=== PATIENT | female | born 1965 | race Caucasian/White ===

== ENCOUNTER 2017-07-25 17:41 | Emergency (ER) | payer MEDICARE ==
[~2017-07-25] VITALS: Ht 162.6 cm; Wt 51.3 kg
[~2017-07-25 17:41] MED LIST: HYDR-971 PO; PRAM1TAB5 PO; TOLT2CAP PO
[2017-07-25 17:54] VITALS: BP 162/90
--- NOTE | 2017-07-25 18:14 | ED.ADGEN ---
Past History Past Medical History: Anemia, Other Past Surgical History: , Other Alcohol Use: None Drug Use: None Adult General Chief Complaint Chief Complaint " I got this really bad dental pain.. here in my two cracked teeth.. I put up with it the last two days.. and now I can't stand it any more..." HPI HPI Patient is a 52 year old female who presents with above hx and complaints of pain in , . Patient has multiple areas of dental decay. No obvious pointing abscesses. No trismus. No adenopathy at ankle of jaw. Patient denies any history of immunosuppression. Patient does have a history of anemia and frequent ice eating. Review of Systems Review of Systems Constitutional: Denies fever or chills [] Eyes: Denies change in visual acuity, redness, or eye pain [] HENT: Denies nasal congestion or sore throat []complains of severe dental pain tonight Respiratory: Denies cough or shortness of breath [] Cardiovascular: No additional information not addressed in HPI [] GI: Denies abdominal pain, nausea, vomiting, bloody stools or diarrhea [] : Denies dysuria or hematuria [] Musculoskeletal: Denies back pain or joint pain [] Integument: Denies rash or skin lesions [] Neurologic: Denies headache, focal weakness or sensory changes [] Endocrine: Denies polyuria or polydipsia [] Family History Family History Noncontributory- has recently lost her to Current Medications Current Medications Current Medications Medications (Trade) Dose Ordered Sig/Abdiaziz Start Time Stop Time Status Last Admin Dose Admin Cephalexin HCl (Keflex) 500 mg 1X ONCE 07/25/17 18:30 07/25/17 18:31 DC 07/25/17 18:29 500 MG Hydrocodone Bitartrate/ Ibuprofen (Vicoprofen 7.5-200) 1 tab 1X ONCE 07/25/17 18:30 07/25/17 18:31 DC 07/25/17 18:30 1 TAB See nursing for home medications Allergies Allergies Allergies Coded Allergies Type Severity Reaction Last Updated Verified Penicillins Allergy Intermediate Rash 02/22/15 Yes vitamin E Allergy Intermediate rash 02/22/15 Yes Physical Exam Physical Exam Constitutional: In acute distress, non-toxic appearance. [] HENT: Normocephalic, atraumatic, bilateral external ears normal, oropharynx moist, no oral exudates, nose normal. Multiple areas of dental decay, gingivitis , and fractures of teeth 27 and 28 as per history of present illness Eyes: PERRLA, EOMI, conjunctiva normal, no discharge. [] Neck: Normal range of motion, no tenderness, supple, no stridor. [] Cardiovascular:Heart rate regular rhythm, no murmur [] Lungs & Thorax: Bilateral breath sounds equal at apexes with scattered wheezes on auscultation [] Abdomen: Bowel sounds normal, soft, no tenderness, no masses, no pulsatile masses. [] Skin: Warm, dry, no erythema, no rash. [] Back: No tenderness, no CVA tenderness. [] Extremities: No tenderness, no cyanosis, no clubbing, ROM intact, no edema. [] Neurologic: Alert and oriented X 3, normal motor function, normal sensory function, no focal deficits noted. [] Psychologic: Affect anxious, judgement normal, mood normal. [] Current Patient Data Vital Signs Vital Signs Date Time Temp Pulse Resp B/P (MAP) Pulse Ox O2 Delivery O2 Flow Rate FiO2 07/25/17 17:54 97.8 77 20 99 Room Air EKG EKG [] Radiology/Procedures Radiology/Procedures [] Course & Med Decision Making Course & Med Decision Making Pertinent Labs and Imaging studies reviewed. (See chart for details) Rents mouth with Listerine 4 times a day. [place] teeth. Must follow-up with Dentist. . Keflex 500 mg 3 times a day x 7 days. May take Vicoprofen up to 4 times a day only for marked pain. Discussed treatment of anemia with her primary care. [] Final Impression Final Impression 1. Dental pain- 27, 28 2. Hx.Anemia and Ice eating[] Problems: Dragon Disclaimer Dragon Disclaimer This electronic medical record was generated, in whole or in part, using a voice recognition dictation system. DONNA PEACE MD Jul 25, 2017 18:14
[2017-07-25] MEDS ORDERED: CEPH-264 PO (18:16)
[2017-07-25] MEDS ORDERED: HYDR-79 PO (18:16)
[2017-07-25] MEDS ORDERED: HYDROcodon/IBUPROFEN 7.5/200MG 1 TAB TABLET PO ONE (18:30)
[2017-07-25] MEDS ORDERED: CEPHALEXIN 250 MG CAPSULE PO ONE (18:30)
== END 2017-07-25 18:30 | disposition home or self-care (01) ==
LOC: ER 17:41
DX: K02.9 Dental caries, unspecified (principal); Z86.2 Personal history of diseases of the blood and blood-forming organs and certain disorders involving the immune mechanism; Z88.0 Allergy status to penicillin; Z88.8 Allergy status to other drugs, medicaments and biological substances
CPT/HCPCS: 99283

== ENCOUNTER 2018-03-06 12:01 | Emergency (ER) | payer MEDICARE ==
[~2018-03-06] VITALS: Ht 162.6 cm; Wt 51.3 kg
[~2018-03-06 12:01] MED LIST changes: +CEPH-264 PO; +HYDR-79 PO
[2018-03-06 12:12] VITALS: BP 166/90
--- NOTE | 2018-03-06 12:31 | PHYS DOC ---
Past History Past Medical History: Anemia, Other Past Surgical History: , Other Alcohol Use: None Drug Use: None Adult General Chief Complaint Chief Complaint: ANKLE PROBLEM HPI HPI 52-year-old female presents to the right ankle pain. One week ago, the patient tripped going down the staircase to her mailbox outside. As she tumbled she knows that she twisted her right ankle is unsure which direction. She has been walking on it. She presents today because it continues to be swollen and tender to the touch along the medial malleolus. She denies any other injury. She denies fever or chills. He has not been wearing a brace or Pete wrap. Review of Systems Review of Systems Constitutional: Denies fever or chills [] Eyes: Denies change in visual acuity, redness, or eye pain [] HENT: Denies nasal congestion or sore throat [] Respiratory: Denies cough or shortness of breath [] Cardiovascular: No additional information not addressed in HPI [] GI: Denies abdominal pain, nausea, vomiting, bloody stools or diarrhea [] : Denies dysuria or hematuria [] Musculoskeletal: Right ankle pain [] Integument: Denies rash or skin lesions [] Neurologic: Denies headache, focal weakness or sensory changes [] Endocrine: Denies polyuria or polydipsia [] All other systems were reviewed and found to be within normal limits, except as documented in this note. Allergies Allergies Allergies Coded Allergies Type Severity Reaction Last Updated Verified Penicillins Allergy Intermediate Rash 02/22/15 Yes vitamin E Allergy Intermediate rash 02/22/15 Yes Physical Exam Physical Exam Constitutional: Well developed, well nourished, no acute distress, non-toxic appearance. [] HENT: Normocephalic, atraumatic, bilateral external ears normal, oropharynx moist, no oral exudates, nose normal. [] Eyes: PERRLA, EOMI, conjunctiva normal, no discharge. [] Neck: Normal range of motion, no tenderness, supple, no stridor. [] Cardiovascular:Heart rate regular rhythm, no murmur [] Lungs & Thorax: Bilateral breath sounds clear to auscultation [] Abdomen: Bowel sounds normal, soft, no tenderness, no masses, no pulsatile masses. [] Skin: Warm, dry, no erythema, no rash. [] Back: No tenderness, no CVA tenderness. [] Extremities: Right medial ankle tenderness, mild swelling of the ankle, no ecchymosis. [] Neurologic: Alert and oriented X 3, normal motor function, normal sensory function, no focal deficits noted. [] Psychologic: Affect normal, judgement normal, mood normal. [] Current Patient Data Vital Signs Vital Signs Date Time Temp Pulse Resp B/P (MAP) Pulse Ox O2 Delivery O2 Flow Rate FiO2 03/06/18 12:12 97.9 66 16 100 Room Air EKG EKG [] Radiology/Procedures Radiology/Procedures Three-view right ankle series Clinical indications: Right ankle pain for one week after a fall. FINDINGS: No acute fracture or dislocation or osteolytic process is seen. The mortise ankle joint is intact. IMPRESSION: No acute fracture. Electronically signed by: Jhonny Llanes MD (03/06/2018 12:30 PM) [facility][] Course & Med Decision Making Course & Med Decision Making Pertinent Labs and Imaging studies reviewed. (See chart for details) Patient's ankle is negative for fracture. This is likely an ankle sprain. I will place her in an air splint. [] Dragon Disclaimer Dragon Disclaimer This electronic medical record was generated, in whole or in part, using a voice recognition dictation system. Departure Departure: Referrals: KAILEY FITZGERALD (PCP) ANNA JOSE DO Mar 06, 2018 12:31
== END 2018-03-06 13:07 | disposition home or self-care (01) ==
LOC: ER 12:01
DX: M25.571 Pain in right ankle and joints of right foot (principal); R22.41 Localized swelling, mass and lump, right lower limb; Z86.2 Personal history of diseases of the blood and blood-forming organs and certain disorders involving the immune mechanism; Z88.0 Allergy status to penicillin; Z88.8 Allergy status to other drugs, medicaments and biological substances; X50.1XXA Overexertion from prolonged static or awkward postures, initial encounter; Y93.89 Activity, other specified; Y99.8 Other external cause status; Y92.89 Other specified places as the place of occurrence of the external cause
CPT/HCPCS: 29515; 73610; 99284

== ENCOUNTER 2018-07-31 15:25 | Emergency (ER) | payer MEDICARE ==
[~2018-07-31] VITALS: Ht 162.6 cm; Wt 47.6 kg
[2018-07-31] MEDS ORDERED: ALBU8.5H8 INH (16:13)
--- NOTE | 2018-07-31 16:16 | RAD ---
AP chest. HISTORY: Cough with fever history of smoking AP view was taken of the chest. Lungs are clear. Heart is normal in size without heart failure. There is no effusion. IMPRESSION: 1. No acute chest disease. Electronically signed by: Roberto Carlos Fuller MD (07/31/2018 4:13 PM) [facility]
--- NOTE | 2018-07-31 16:16 | PHYS DOC ---
Past History Past Medical History: Anemia, Other Past Surgical History: , Other Alcohol Use: Rarely Drug Use: None Adult General Chief Complaint Chief Complaint: SORE THROAT HPI HPI Patient is a 53-year-old female presenting with cough sore throat and mild body aches for the last 2 days family member had strep throat she wants to be checked for that. Chest pain only with coughing. She quit smoking 2 years ago otherwise she does not have any medical problems that she knows about. Review of Systems Review of Systems Constitutional: Denies fever or chills [] Eyes: Denies change in visual acuity, redness, or eye pain [] HENT: Nasal congestion noted Respiratory: D Integument: Denies rash or skin lesions [] Neurologic: Denies headache, focal weakness or sensory changes [] Endocrine: Denies polyuria or polydipsia [] All other systems were reviewed and found to be within normal limits, except as documented in this note. Allergies Allergies Allergies Coded Allergies Type Severity Reaction Last Updated Verified Penicillins Allergy Intermediate Rash 02/22/15 Yes vitamin E Allergy Intermediate rash 02/22/15 Yes Physical Exam Physical Exam Constitutional: Well developed, well nourished, no acute distress, non-toxic appearance. [] HENT: Normocephalic, atraumatic, bilateral external ears normal, oropharynx moist, no oral exudates, nose normal. []Mild erythema of the oropharynx no exudates Eyes: PERRLA, EOMI, conjunctiva normal, no discharge. [] Neck: Normal range of motion, no tenderness, supple, no stridor. [] Cardiovascular:Heart rate regular rhythm, no murmur [] Lungs & Thorax: Bilateral breath sounds clear to auscultation [] Abdomen: Bowel sounds normal, soft, no tenderness, no masses, no pulsatile masses. [] Skin: Warm, dry, no erythema, no rash. [] Back: No tenderness, no CVA tenderness. [] Extremities: No tenderness, no cyanosis, no clubbing, ROM intact, no edema. [] Neurologic: Alert and oriented X 3, normal motor function, normal sensory function, no focal deficits noted. [] Psychologic: Affect normal, judgement normal, mood normal. [] Current Patient Data Vital Signs Vital Signs Date Time Temp Pulse Resp B/P (MAP) Pulse Ox O2 Delivery O2 Flow Rate FiO2 07/31/18 15:33 97.6 98 20 100 Room Air Lab Results Laboratory Tests Test 07/31/18 15:45 Group A Streptococcus Rapid Negative (NEGATIVE) EKG EKG [] Radiology/Procedures Radiology/Procedures [] Impressions: Chest x-ray my read negative acute. Course & Med Decision Making Course & Med Decision Making Pertinent Labs and Imaging studies reviewed. (See chart for details) []Sore throat and sinus congestion cough lungs clear strep test negative chest x -ray clear vitals look good reassurance provided albuterol prescription given due to history of smoking possible improvement in cough from that. Return precautions discussed Dragtom Disclaimer Dragon Disclaimer This electronic medical record was generated, in whole or in part, using a voice recognition dictation system. Departure Departure: Impression: Primary Impression: Bronchitis Disposition: 01 HOME, SELF-CARE Condition: STABLE Patient Instructions: Bronchitis, Fomn-fh-[id number] Scripts Albuterol Sulfate (PROAIR HFA INHALER) 8.5 Gm Hfa.aer.ad 1 PUFF INH PRN Q6HRS PRN for SHORTNESS OF BREATH, #1 INHALER 0 Refills Prov: MINA JAFFE MD 07/31/18 MINA JAFFE MD Jul 31, 2018 16:16
[2018-07-31 16:23] VITALS: BP 131/68
== END 2018-07-31 16:23 | disposition home or self-care (01) ==
LOC: ER 15:25
DX: J40 Bronchitis, not specified as acute or chronic (principal); Z88.0 Allergy status to penicillin; Z88.8 Allergy status to other drugs, medicaments and biological substances; Z86.2 Personal history of diseases of the blood and blood-forming organs and certain disorders involving the immune mechanism
CPT/HCPCS: 71045; 87070; 87880; 99285

== ENCOUNTER 2018-12-16 18:43 | Emergency (ER) | payer MEDICARE ==
[~2018-12-16] VITALS: Ht 162.6 cm; Wt 49.9 kg
[~2018-12-16 18:43] MED LIST changes: +ALBU2.5V8 INH; +HYDR-1179 PO; +HYDR-3165 PO; -HYDR-79 PO; -HYDR-971 PO
--- NOTE | 2018-12-16 19:10 | PHYS DOC ---
Past History Past Medical History: Anemia, Hypertension, Other Past Surgical History: , Other Smoking: Non-smoker Alcohol Use: None Drug Use: None Adult General Chief Complaint Chief Complaint: LOWEREXTREMITY INJURY HPI HPI Patient is a 53-year-old female who presents to the emergency department for evaluation. She states that for the past 24 hours she has developed pedal edema in her lower extremities bilaterally. She denies any leg pain or calf pain, shortness of breath, orthopnea, pleuritic pain, dizziness or lightheadedness. She has not had any dyspnea on exertion. She states she has had edema in the past, about a year ago. She reports a history of anemia and history of hypertension, but has run out of her lisinopril and is not taking any other medication. She cites lack of insurance is a reason that she does not go to the doctor regularly. Other than her edema she has no other complaints. There are no alleviating or exacerbating factors to her symptoms otherwise. Review of Systems Review of Systems Constitutional: Denies fever or chills [] Eyes: Denies change in visual acuity, redness, or eye pain [] HENT: Denies nasal congestion or sore throat [] Respiratory: Denies cough or shortness of breath [] Cardiovascular: The patient denies any shortness of breath, chest pain, palpitations, or orthopnea [] GI: Denies abdominal pain, nausea, vomiting, bloody stools or diarrhea [] : Denies dysuria or hematuria [] Musculoskeletal: Denies back pain or joint pain [] Integument: Denies rash or skin lesions [] Neurologic: Denies headache, focal weakness or sensory changes [] Endocrine: Denies polyuria or polydipsia [] All other systems were reviewed and found to be within normal limits, except as documented in this note. Allergies Allergies Allergies Coded Allergies Type Severity Reaction Last Updated Verified Penicillins Allergy Intermediate Rash 02/22/15 Yes vitamin E Allergy Intermediate rash 02/22/15 Yes Physical Exam Physical Exam PHYSICAL EXAM: CONSTITUTIONAL: Well developed, well nourished HEAD: normocephalic, atraumatic EENT: PERRL, EOMI. Conjunctivae normal color, sclerae non-icteric; moist mucous membranes. NECK: Supple, non-tender; no meningismus. LUNGS: Lungs CTA, breathing even and unlabored. Normal air movement. HEART: Regular rate and rhythm, no murmur CHEST: No deformity; non-tender ABDOMEN: The abdomen is soft, and non-tender, no masses or bruits. EXTREM: Normal ROM; no deformity, no calf tenderness. Normal pulses palpable in all extremities. There is 1+ bilateral minimally pitting pedal edema. SKIN: No rash; no diaphoresis NEURO: Alert; normal speech and cognition; CN's grossly intact; strength grossly intact without focal deficit. BACK: No CVA TTP. Current Patient Data Vital Signs Vital Signs Date Time Temp Pulse Resp B/P (MAP) Pulse Ox O2 Delivery O2 Flow Rate FiO2 12/16/18 18:45 98.0 90 20 99 Room Air Lab Results Laboratory Tests Test 12/16/18 19:15 White Blood Count 11.8 x10^3/uL Red Blood Count 3.81 x10^6/uL Hemoglobin 8.2 g/dL Hematocrit 26.9 % Mean Corpuscular Volume 71 fL Mean Corpuscular Hemoglobin 22 pg Mean Corpuscular Hemoglobin Concent 31 g/dL Red Cell Distribution Width 19.4 % Platelet Count 650 x10^3/uL Neutrophils (%) (Auto) 81 % Lymphocytes (%) (Auto) 11 % Monocytes (%) (Auto) 7 % Eosinophils (%) (Auto) 1 % Basophils (%) (Auto) 1 % Neutrophils # (Auto) 9.5 x10^3uL Lymphocytes # (Auto) 1.2 x10^3/uL Monocytes # (Auto) 0.8 x10^3/uL Eosinophils # (Auto) 0.1 x10^3/uL Basophils # (Auto) 0.1 x10^3/uL Platelet Estimate Pending Sodium Level 143 mmol/L Potassium Level 3.1 mmol/L Chloride Level 108 mmol/L Carbon Dioxide Level 28 mmol/L Anion Gap 7 Blood Urea Nitrogen 19 mg/dL Creatinine 0.7 mg/dL Estimated GFR (Cockcroft-Gault) 86.9 BUN/Creatinine Ratio 27 Glucose Level 117 mg/dL Calcium Level 8.4 mg/dL Total Bilirubin 0.1 mg/dL Aspartate Amino Transf (AST/SGOT) 47 U/L Alanine Aminotransferase (ALT/SGPT) 40 U/L Alkaline Phosphatase 170 U/L Troponin I Quantitative < 0.017 ng/mL ZM-Ojy-W-Type Natriuretic Peptide 196 pg/mL Total Protein 6.2 g/dL Albumin 3.2 g/dL Albumin/Globulin Ratio 1.1 EKG EKG Normal sinus rhythm with a normal rate, normal axis, normal intervals, there are no acute ischemic ST/T changes.[] Radiology/Procedures Radiology/Procedures ER physician preliminary chest x-ray interpretation: No acute disease.[] Course & Med Decision Making Course & Med Decision Making Pertinent Labs and Imaging studies reviewed. (See chart for details) []The patient's condition remained stable. Her anemia is similar to a prior value, I discussed the test results, the need for close outpatient follow-up with her PCP, and return precautions. The patient will be given numbers of local PCPs with which to establish care. The importance of close outpatient follow-up was stressed. Dragon Disclaimer Dragon Disclaimer This electronic medical record was generated, in whole or in part, using a voice recognition dictation system. Departure Departure: Impression: Primary Impression: Pedal edema Additional Impression: Hypertension Disposition: HOME, SELF-CARE Condition: STABLE Referrals: KAILEY FITZGERALD (PCP) Patient Instructions: Hypertension, Peripheral Edema Scripts Lisinopril/Hydrochlorothiazide (LISINOPRIL-HCTZ 20-25 MG TAB) 1 Each Tablet 1 TAB PO DAILY for N/A, #30 TAB 0 Refills Prov: DENA HOANG MD 12/16/18 Potassium Chloride (KLOR-CON 10) 10 Meq Tablet.er 2 TAB PO DAILY for N/A, #60 TAB 0 Refills Prov: DENA HOANG MD 12/16/18 Problem Qualifiers DENA HOANG MD Dec 16, 2018 19:10
[2018-12-16 19:27] LABS: BASO # 0.1 x10^3/uL (0.0-0.2); BASO % 1 % (0-3); EOS # 0.1 x10^3/uL (0.0-0.7); EOS % 1 % (0-3); HEMATOCRIT 26.9 % (36.0-47.0); HEMOGLOBIN 8.2 g/dL (12.0-15.5); LYMPH # 1.2 x10^3/uL (1.0-4.8); LYMPH % 11 % (24-48); MEAN CORPUSCULAR HEMOGLOBIN 22 pg (25-35); MEAN CORPUSCULAR HGB CONC 31 g/dL (31-37); MEAN CORPUSCULAR VOLUME 71 fL (79-100); MONO # 0.8 x10^3/uL (0.0-1.1); MONO % 7 % (0-9); NEUT # 9.5 x10^3uL (1.8-7.7); NEUT % 81 % (31-73); PLATELET COUNT 650 x10^3/uL (140-400); RED BLOOD COUNT 3.81 x10^6/uL (3.50-5.40); RED CELL DISTRIBUTION WIDTH 19.4 % (11.5-14.5); WHITE BLOOD COUNT 11.8 x10^3/uL (4.0-11.0)
[2018-12-16 19:48] LABS: ALBUMIN 3.2 g/dL (3.4-5.0); ALBUMIN/GLOBULIN RATIO 1.1 (1.0-1.7); CALCIUM 8.4 mg/dL (8.5-10.1); CREATININE 0.7 mg/dL (0.6-1.0); GFR 86.9; POTASSIUM 3.1 mmol/L (3.5-5.1); TOTAL BILIRUBIN 0.1 mg/dL (0.2-1.0); TOTAL PROTEIN 6.2 g/dL (6.4-8.2)
--- NOTE | 2018-12-16 19:56 | RAD ---
EXAM: PA and Lateral Views of the Chest DATE: 12/16/2018 7:26 PM INDICATION: Pedal Edema, hypertension, leg pain COMPARISON: No Prior FINDINGS: The heart is not enlarged. Mediastinal and hilar contours are normal. No focal parenchymal airspace opacity. No pleural effusion or pneumothorax. IMPRESSION: 1. No radiographic evidence for acute cardiopulmonary process. Electronically signed by: Norris Wen MD (12/16/2018 7:54 PM) [facility]
[2018-12-16] MEDS ORDERED: LISI1TAB7 PO (20:01)
[2018-12-16] MEDS ORDERED: POTA10TA5 PO (20:01)
[2018-12-16 20:06] VITALS: BP 158/86
[2018-12-16 20:25] LABS: ANISOCYTOSIS SLIGHT; PLT ESTIMATE INCREASED (ADEQUATE)
[2018-12-16 20:26] LABS: HYPOCHROMIA MOD; MICROCYTOSIS SLIGHT
--- NOTE | 2018-12-17 22:32 | EKG ---
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
== END 2018-12-16 20:09 | disposition home or self-care (01) ==
LOC: ER 18:43
DX: R60.0 Localized edema (principal); I10 Essential (primary) hypertension; Z86.2 Personal history of diseases of the blood and blood-forming organs and certain disorders involving the immune mechanism; Z88.0 Allergy status to penicillin; Z88.8 Allergy status to other drugs, medicaments and biological substances
CPT/HCPCS: 36415; 71046; 80053; 83880; 84484; 85025; 93005; 99284

== ENCOUNTER 2019-01-07 12:12 | Emergency (ER) | payer MEDICARE ==
[~2019-01-07] VITALS: Ht 162.6 cm; Wt 46.3 kg
[~2019-01-07 12:12] MED LIST changes: +LISI1TAB7 PO; +POTA10TA5 PO
[2019-01-07] MEDS ORDERED: IV NORMAL SALINE 1,000ML 1,000 ML IV ONE (12:45)
--- NOTE | 2019-01-07 12:46 | PHYS DOC ---
Past History Past Medical History: CHF, Hypertension Past Surgical History: Smoking: Non-smoker Alcohol Use: None Drug Use: None Adult General Chief Complaint Chief Complaint: SOB HPI HPI 53-year-old female presents complaining of dental fracture of tooth #6. She states it has been hurting for 4 days. The patient also tells me that for the same 4 days, she is having creased shortness of breath with activity requires her to sit down. After she sits down it improves. She has also had some bilateral thigh cramps over the same time period. She has no cardiac history. She has no history of lung disease. She states that the decreased exercise tolerance is frightening her. She denies fever or chills. She denies chest pain or diaphoresis. Review of Systems Review of Systems Constitutional: Denies fever or chills [] Eyes: Denies change in visual acuity, redness, or eye pain [] HENT: Denies nasal congestion or sore throat [] Respiratory: shortness of breath [] Cardiovascular: No additional information not addressed in HPI [] GI: Denies abdominal pain, nausea, vomiting, bloody stools or diarrhea [] : Denies dysuria or hematuria [] Musculoskeletal: Leg pain[] Integument: Denies rash or skin lesions [] Neurologic: Denies headache, focal weakness or sensory changes [] Endocrine: Denies polyuria or polydipsia [] All other systems were reviewed and found to be within normal limits, except as documented in this note. Allergies Allergies Allergies Coded Allergies Type Severity Reaction Last Updated Verified Penicillins Allergy Intermediate Rash 02/22/15 Yes vitamin E Allergy Intermediate rash 02/22/15 Yes Physical Exam Physical Exam Constitutional: Well developed, well nourished, no acute distress, non-toxic appearance. [] HENT: Normocephalic, atraumatic, bilateral external ears normal, oropharynx moist, no oral exudates, nose normal. Fractured tooth #6 with exposed dental pulp. [] Eyes: PERRLA, EOMI, conjunctiva normal, no discharge. [] Neck: Normal range of motion, no tenderness, supple, no stridor. [] Cardiovascular:Heart rate regular rhythm, no murmur [] Lungs & Thorax: Bilateral breath sounds clear to auscultation [] Abdomen: Bowel sounds normal, soft, no tenderness, no masses, no pulsatile masses. [] Skin: Warm, dry, no erythema, no rash. [] Back: No tenderness, no CVA tenderness. [] Extremities: No tenderness, no cyanosis, no clubbing, ROM intact, no edema. [] Neurologic: Alert and oriented X 3, normal motor function, normal sensory function, no focal deficits noted. [] Psychologic: Affect normal, judgement normal, mood anxious. [] Current Patient Data Vital Signs Vital Signs Date Time Temp Pulse Resp B/P (MAP) Pulse Ox O2 Delivery O2 Flow Rate FiO2 01/07/19 12:19 98.2 100 20 100 Room Air EKG EKG Sinus rhythm, rate 87, normal axis, no ST elevations or depressions.[] Radiology/Procedures Radiology/Procedures [] Impressions: CHEST PA LATERAL History: SHORT OF BREATH Comparison: Two-view chest December 16, 2018. Findings: The cardiomediastinal silhouette is normal. Pulmonary vasculature is normal. The lungs are clear. Bilateral nipple shadows incidentally noted. No pleural effusion or pneumothorax is seen. There is no acute bone abnormality. IMPRESSION: No acute cardiopulmonary process. Electronically signed by: Riley Redmond MD (01/07/2019 1:18 PM) [id number] DICTATED AND SIGNED BY: RILYE REDMOND MD DATE: 01/07/19 1318 CC: ANNA JOSE DO; KAILEY FITZGERALD ~ Course & Med Decision Making Course & Med Decision Making Pertinent Labs and Imaging studies reviewed. (See chart for details) The patient's EKG is unremarkable. Her chest x-ray is unremarkable. Her troponin is normal. Her labs show a slightly elevated white count and elevated platelet count. The rest for labs suggest dehydration. We have given her 1 L normal saline. I have advised that the patient follow up with her PCP if the symptoms persist. She also needs to see a dentist to take care of her fractured tooth. She is stable for discharge at this time. [] Dragon Disclaimer Dragon Disclaimer This electronic medical record was generated, in whole or in part, using a voice recognition dictation system. Departure Departure: Impression: Primary Impression: SOB (shortness of breath) on exertion Additional Impression: Fractured tooth Disposition: HOME, SELF-CARE Condition: STABLE Referrals: KAILEY FITZGERALD (PCP) Patient Instructions: Dental Fracture, Shortness of Breath, [id number] Problem Qualifiers Additional Impression: Fractured tooth Encounter type: initial encounter Fracture type: open Qualified Codes: S02.5XXB - Fracture of tooth (traumatic), initial encounter for open fracture ANNA JOSE DO Jan 07, 2019 12:46
[2019-01-07 13:15] LABS: BASO # 0.2 x10^3/uL (0.0-0.2); BASO % 1 % (0-3); EOS % 0 % (0-3); HEMATOCRIT 35.7 % (36.0-47.0); HEMOGLOBIN 11.2 g/dL (12.0-15.5); LYMPH # 1.5 x10^3/uL (1.0-4.8); LYMPH % 12 % (24-48); MEAN CORPUSCULAR HEMOGLOBIN 22 pg (25-35); MEAN CORPUSCULAR HGB CONC 32 g/dL (31-37); MEAN CORPUSCULAR VOLUME 70 fL (79-100); MONO # 0.8 x10^3/uL (0.0-1.1); MONO % 6 % (0-9); NEUT # 10.2 x10^3uL (1.8-7.7); NEUT % 81 % (31-73); PLATELET COUNT 629 x10^3/uL (140-400); RED BLOOD COUNT 5.11 x10^6/uL (3.50-5.40); RED CELL DISTRIBUTION WIDTH 19.4 % (11.5-14.5); WHITE BLOOD COUNT 12.7 x10^3/uL (4.0-11.0)
--- NOTE | 2019-01-07 13:21 | RAD ---
CHEST PA LATERAL History: SHORT OF BREATH Comparison: Two-view chest December 16, 2018. Findings: The cardiomediastinal silhouette is normal. Pulmonary vasculature is normal. The lungs are clear. Bilateral nipple shadows incidentally noted. No pleural effusion or pneumothorax is seen. There is no acute bone abnormality. IMPRESSION: No acute cardiopulmonary process. Electronically signed by: Riley Stuart MD (01/07/2019 1:18 PM) [id number]
[2019-01-07 13:31] LABS: ALBUMIN 3.8 g/dL (3.4-5.0); CALCIUM 9.5 mg/dL (8.5-10.1); CREATININE 1.3 mg/dL (0.6-1.0); GFR 42.5; POTASSIUM 3.4 mmol/L (3.5-5.1); TOTAL BILIRUBIN 0.2 mg/dL (0.2-1.0); TOTAL PROTEIN 7.6 g/dL (6.4-8.2)
[2019-01-07 13:47] LABS: ANISOCYTOSIS SLIGHT; HYPOCHROMIA MOD; MICROCYTOSIS MOD; PLT ESTIMATE INCREASED (ADEQUATE)
[2019-01-07 13:48] LABS: OVALOCYTES PRESENT
[2019-01-07 14:00] VITALS: BP 135/72
== END 2019-01-07 14:11 | disposition home or self-care (01) ==
LOC: ER 12:12
DX: S02.5XXA Fracture of tooth (traumatic), initial encounter for closed fracture (principal); R06.02 Shortness of breath; E86.0 Dehydration; I11.0 Hypertensive heart disease with heart failure; I50.9 Heart failure, unspecified; M79.652 Pain in left thigh; M79.651 Pain in right thigh; Z88.0 Allergy status to penicillin; Z88.8 Allergy status to other drugs, medicaments and biological substances; X58.XXXA Exposure to other specified factors, initial encounter; Y93.89 Activity, other specified; Y92.89 Other specified places as the place of occurrence of the external cause; Y99.8 Other external cause status
CPT/HCPCS: 36415; 71046; 80053; 84484; 85025; 96360; 99284-25; J7030

== ENCOUNTER 2020-05-15 14:45 | Emergency (ER) | payer OTHER, MEDICARE ==
[~2020-05-15] VITALS: Ht 162.6 cm; Wt 50.2 kg
[~2020-05-15 14:45] MED LIST changes: +LISI1TAB20 PO; -LISI1TAB7 PO
[2020-05-15 14:57] VITALS: BP 157/78
--- NOTE | 2020-05-15 15:10 | PHYS DOC ---
Past History Past Medical History: CHF, COPD, Hypertension Past Surgical History: Smoking: Non-smoker Alcohol Use: None Drug Use: None General Adult EDM: Chief Complaint: LOWER EXT PAIN HPI: HPI: Patient is a 55 year old female who presents for evaluation of multiple areas of injury to her lower legs. She states initial injury was about 3 weeks ago when she fell and injured her left ankle. There is swelling to the top of her foot since that fall. She states that earlier today she was walking and fell again. She injured both of her ankles once again and also has obvious bruising to her left knee. Patient has pain to bearing weight but no other injuries reported. Patient is also complaining of some acute on chronic dental discomfort Review of Systems: Review of Systems: Constitutional: Denies fever or chills Eyes: Denies change in visual acuity HENT: Denies nasal congestion or sore throat Respiratory: Denies cough or shortness of breath Cardiovascular: Denies chest pain or edema GI: Denies abdominal pain, nausea, vomiting, bloody stools or diarrhea : Denies dysuria Musculoskeletal: Denies back pain, both ankle joint pain and left knee pain Integument: Denies rash Neurologic: Denies headache, focal weakness or sensory changes Endocrine: Denies polyuria or polydipsia Lymphatic: Denies swollen glands Psychiatric: Denies depression or anxiety Heart Score: Risk Factors: Risk Factors: DM, Current or recent (<one month) smoker, HTN, HLP, family history of CAD, obesity. Risk Scores: Score 0 - 3: 2.5% MACE over next 6 weeks - Discharge Home Score 4 - 6: 20.3% MACE over next 6 weeks - Admit for Clinical Observation Score 7 - 10: 72.7% MACE over next 6 weeks - Early Invasive Strategies Allergies: Allergies: Allergies Coded Allergies Type Severity Reaction Last Updated Verified Penicillins Allergy Intermediate Rash 02/22/15 Yes vitamin E Allergy Intermediate rash 02/22/15 Yes Physical Exam: PE: Constitutional: Well developed, well nourished, mild acute distress, non-toxic appearance. [] HENT: Normocephalic, atraumatic, bilateral external ears normal, oropharynx moist, no oral exudates, nose normal. [] Eyes: PERRL, EOMI, conjunctiva normal, no discharge. [] Neck: Normal range of motion, no tenderness, supple, no stridor. [] Cardiovascular:Heart rate regular rhythm, no murmur [] Lungs & Thorax: Bilateral breath sounds clear to auscultation [] Abdomen: Bowel sounds normal, soft, no tenderness. [] Skin: Warm, dry, no erythema, no rash. [] Back: No tenderness. [] Extremities: moderate tenderness both ankles and left knee, no cyanosis, no clubbing, ROM intact, mild edema to top of both feet. [] Neurologic: Alert and oriented, normal motor function, normal sensory function, no focal deficits noted. [] Psychologic: Affect normal, judgement normal, mood normal. [] Current Patient Data: Vital Signs: Vital Signs Date Time Temp Pulse Resp B/P (MAP) Pulse Ox O2 Delivery O2 Flow Rate FiO2 05/15/20 14:57 98.0 82 14 157/78 (104) 98 Room Air EKG: EKG: [] Radiology/Procedures: Radiology/Procedures: [[address] [address] IMAGING REPORT Signed PATIENT: SVETLANA NOONAN: [id number] : 1965 LOCATION: ER AGE: 55 SEX: F EXAM STATUS: REG ER ORD. PHYSICIAN: CELIA LYNCH DO REASON: fall, injury to both ankles PROCEDURE: KNEE LEFT 3V KNEE LEFT 3V History: Reason: fall, pain. Technique: 3 views left knee. Comparison: None. Findings: Normal alignment. No fracture. No significant knee joint effusion. Postop changes proximal tibia. Mild patellar spurring and medial compartment joint space narrowing. Impression: 1. No acute osseous abnormality. Electronically signed by: Robbie Torre DO (05/15/2020 3:30 PM) [id number] DICTATED AND SIGNED BY: ROBBIE TORRE DO DATE: 05/15/20 1530 CC: KAILEY FITZGERALD; CELIA LYNCH DO ~ ] Impressions: [address] [address] IMAGING REPORT Signed PATIENT: SVETLANA NOONAN: [id number] : 1965 LOCATION: ER AGE: 55 SEX: F EXAM STATUS: REG ER ORD. PHYSICIAN: CELIA LYNCH DO REASON: fall, injury to both ankles PROCEDURE: ANKLE BILAT 3V ANKLE BILAT 3V History: Reason: fall, injury to both ankles / Spl. Instructions: / History: Technique: 3 views bilateral ankles. Comparison: None. Findings: Left ankle: Normal alignment. Symmetric ankle mortise. No fracture. Tiny plantar calcaneal spur. Right ankle: Normal alignment. Symmetric ankle mortise. No fracture. Tiny plantar calcaneal spur. Impression: 1. No acute osseous abnormality. Electronically signed by: Robbie Torre DO (05/15/2020 3:33 PM) [id number] DICTATED AND SIGNED BY: ROBBIE TORRE DO DATE: 05/15/20 153 CC: ANDERS BARNES MD; CELIA LYNCH DO ~ Course & Med Decision Making: Course & Med Decision Making Pertinent Labs and Imaging studies reviewed. (See chart for details) [] Dragon Disclaimer: Dragon Disclaimer: This electronic medical record was generated, in whole or in part, using a voice recognition dictation system. 1545 stable, feeling better at this time. X-rays of left knee and both ankles failed to show evidence of fracture or dislocation. Patient is able to ambulate with minimal difficulty. Prescription for Naprosyn given. Supportive care recommended Departure Departure: Impression: Primary Impression: Contusion of left knee Qualified Codes: S80.02XA - Contusion of left knee, initial encounter Additional Impression: Ankle sprain Qualified Codes: S93.409A - Sprain of unspecified ligament of unspecified ankle, initial encounter Disposition: HOME/RESIDENCE PRIOR TO ADM Condition: STABLE Referrals: KAILEY FITZGERALD (PCP) Patient Instructions: Ankle Sprain, [id number]-[id number], Knee Sprain Additional Instructions: Rest, ice and elevate the injured left knee and both ankles, take prescription anti-inflammatories as directed, return if worsen Scripts Naproxen (NAPROSYN) 500 Mg Tablet 1 TAB PO BID for pain for 10 Days, #20 TAB 0 Refills Prov: CELIA LYNCH DO 05/15/20 Justification of Admission: Justification of Admission: Justification of Admission Dx: N/A CELIA LYNCH DO May 15, 2020 15:10
[2020-05-15] MEDS ORDERED: NAPROXEN 500 MG TABLET PO ONE (15:15)
--- NOTE | 2020-05-15 15:33 | RAD ---
KNEE LEFT 3V History: Reason: fall, pain. Technique: 3 views left knee. Comparison: None. Findings: Normal alignment. No fracture. No significant knee joint effusion. Postop changes proximal tibia. Mild patellar spurring and medial compartment joint space narrowing. Impression: 1. No acute osseous abnormality. Electronically signed by: Robbie Torre DO (05/15/2020 3:30 PM) [id number]
--- NOTE | 2020-05-15 15:36 | RAD ---
ANKLE BILAT 3V History: Reason: fall, injury to both ankles / Spl. Instructions: / History: Technique: 3 views bilateral ankles. Comparison: None. Findings: Left ankle: Normal alignment. Symmetric ankle mortise. No fracture. Tiny plantar calcaneal spur. Right ankle: Normal alignment. Symmetric ankle mortise. No fracture. Tiny plantar calcaneal spur. Impression: 1. No acute osseous abnormality. Electronically signed by: Robbie Torre DO (05/15/2020 3:33 PM) [id number]
[2020-05-15] MEDS ORDERED: NAPR-683 PO (15:50)
== END 2020-05-15 16:00 | disposition home or self-care (01) ==
LOC: ER 14:45
DX: S93.402A Sprain of unspecified ligament of left ankle, initial encounter (principal); S93.401A Sprain of unspecified ligament of right ankle, initial encounter; S80.02XA Contusion of left knee, initial encounter; I11.0 Hypertensive heart disease with heart failure; I50.9 Heart failure, unspecified; J44.9 Chronic obstructive pulmonary disease, unspecified; Z88.0 Allergy status to penicillin; Z88.8 Allergy status to other drugs, medicaments and biological substances; W18.39XA Other fall on same level, initial encounter; Y93.01 Activity, walking, marching and hiking; Y92.89 Other specified places as the place of occurrence of the external cause; Y99.8 Other external cause status
CPT/HCPCS: 73562; 73610; 99284

== ENCOUNTER 2021-11-03 13:49 | Emergency (ER) | payer MEDICARE, OTHER ==
[~2021-11-03] VITALS: Ht 162.6 cm; Wt 50.2 kg
[~2021-11-03 13:49] MED LIST changes: -LISI1TAB20 PO; +LISI1TAB39 PO; +NAPR-683 PO; +POTA-112 PO; -POTA10TA5 PO
[2021-11-03 14:02] VITALS: BP 148/74
[2021-11-03] MEDS ORDERED: CLIN150C16 PO (14:02)
--- NOTE | 2021-11-03 14:06 | PHYS DOC ---
Past History Past Medical History: CHF, COPD, Hypertension (SKYE FRAZIER APRN) Past Surgical History: (SKYE FRAZIER APRN) Smoking: Non-smoker Alcohol Use: None Drug Use: None (SKYE FRAZIER APRN) General Adult EDM: Chief Complaint: DENTAL PROBLEM HPI: HPI: Patient is a 56-year-old female who presents to the emergency department for a nonproductive cough with shortness of breath that started 2 days ago. She is also reporting a dental infection and dental pain that started 4 days ago. Patient is not vaccinated for COVID-19. She denies any smoking. She reports taking ibuprofen at home for her symptoms. She denies any fevers, nausea, vomiting. She had a positive sick exposure at home. She has no dentist. (SKYE FRAZIER APRN) Review of Systems: Review of Systems: Constitutional: negative unless reported in HPI Eyes: negative unless reported in HPI HENT: negative unless reported in HPI Respiratory: negative unless reported in HPI Cardiovascular: negative unless reported in HPI GI: negative unless reported in HPI : negative unless reported in HPI Musculoskeletal: negative unless reported in HPI Integument: negative unless reported in HPI Neurologic: negative unless reported in HPI Endocrine: negative unless reported in HPI Lymphatic: negative unless reported in HPI Psychiatric: negative unless reported in HPI (SKYE FRAZIER APRN) Allergies: Allergies: Allergies Coded Allergies Type Severity Reaction Last Updated Verified Penicillins Allergy Intermediate Rash 02/22/15 Yes vitamin E Allergy Intermediate rash 02/22/15 Yes (SKYE FRAZIER APRN) Physical Exam: PE: Constitutional: Well developed, well nourished, no acute distress, non-toxic appearance. [] HENT: Normocephalic, atraumatic, bilateral external ears normal, oropharynx moist, several areas of dental decay broken and missing teeth, mild erythema noted to the front bottom gums but no abscess seen, no oral exudates, nose normal. [] Eyes: PERRL EOMI, conjunctiva normal, no discharge. [] Neck: Normal range of motion, no tenderness, supple, no stridor. [] Cardiovascular:Heart rate regular rhythm, no murmur [] Lungs & Thorax: Bilateral breath sounds clear to auscultation [] Abdomen: Bowel sounds normal, soft, no tenderness, no masses, no pulsatile masses. [] Skin: Warm, dry, no erythema, no rash. [] Back: Normal range of motion Extremities: No tenderness, no cyanosis, no clubbing, ROM intact, no edema. [] Neurologic: Alert and oriented X 3, normal motor function, normal sensory function, no focal deficits noted. [] Psychologic: Affect normal, judgement normal, mood normal. [] (SKYE FRAZIER APRN) Current Patient Data: Labs: Laboratory Tests Test 11/03/21 14:17 Influenza Type A (Rapid) Negative Influenza Type B (Rapid) Negative SARS-CoV-2 Antigen (Rapid) Negative (SKYE FRAZIER APRN) EKG: EKG: [] (SKYE FRAZIER APRN) Radiology/Procedures: Radiology/Procedures: []PROCEDURE: PORTABLE CHEST 1V EXAM: XR CHEST 1V 11/03/2021 2:04 PM CLINICAL INDICATION: Cough, shortness of air, tooth infection COMPARISON: Chest radiograph 01/07/2019 TECHNIQUE: AP view of the chest FINDINGS: The heart is normal in size. Lungs are well-expanded and clear. No pleural effusion or pneumothorax. No acute osseous abnormality. IMPRESSION: Normal chest radiograph. Electronically signed by: Kalyn Mckenzie MD (11/03/2021 2:07 PM) [id number] DICTATED AND SIGNED BY: KALYN MCKENZIE MD DATE: 11/03/21 1406 CC: ANDERS BARNES MD; SKYE FRAZIER APRN ~MTH0 0 (SKYE FRAZIER APRN) Heart Score: C/O Chest Pain: N/A Risk Factors: Risk Factors: DM, Current or recent (<one month) smoker, HTN, HLP, family history of CAD, obesity. Risk Scores: Score 0 - 3: 2.5% MACE over next 6 weeks - Discharge Home Score 4 - 6: 20.3% MACE over next 6 weeks - Admit for Clinical Observation Score 7 - 10: 72.7% MACE over next 6 weeks - Early Invasive Strategies (SKYE FRAZIER APRN) Course & Med Decision Making: Course & Med Decision Making Pertinent Labs and Imaging studies reviewed. (See chart for details) [] Patient presents to the emergency department for a nonproductive cough and shortness of breath. She will be tested for influenza and COVID-19. Those results were negative. Chest x-ray was performed to rule out pneumonia which showed no acute findings. Patient is also reporting front bottom dental pain. She will be treated with antibiotic for dental infection. She was also given a referral for dental clinics in the area she does not have a dentist or dental insurance. Patient's vital signs are stable she is in no acute distress. I discussed with patient all findings and diagnostic testing as well as the need to follow-up with PCP for further evaluation and treatment or return to the ER if any new or worsening symptoms. Strict return precautions were also discussed at length. Patient voiced understanding and agreement with the plan. Patient is hemodynamically stable at the time of disposition. (SKYE FRAZIER APRN) Dragon Disclaimer: Dragon Disclaimer: This electronic medical record was generated, in whole or in part, using a voice recognition dictation system. (SKYE FRAZIER APRN) Attending Co-Sign The patient was seen and interviewed as well as examined at the bedside. The chart was reviewed. The case was discussed. Agree with the plan of care. (ANNA JOSE DO) Departure Departure: Impression: Primary Impression: Cough Additional Impression: Dental infection Disposition: HOME / SELF CARE / HOMELESS Condition: GOOD Referrals: ANDERS BARNES MD (PCP) Patient Instructions: Cough, Adult, Dental Abscess Additional Instructions: You were seen in the emergency department today for cough, shortness of breath and dental pain. Your rapid influenza test was negative your rapid COVID test was negative. We performed a chest x-ray to rule out pneumonia which showed no acute findings. You are being treated with an antibiotic for your dental infection. Use Delsym [id number] for your cough. You are also being discharged home with pain medication that you can take for your dental pain. This medication is hydrocodone and Tylenol combination tablet. Do not take any additional Tylenol with this medication. This medication may cause sedation so do not take when you need to be alert, driving a vehicle or with alcohol. Please follow-up with one of the dental clinics that was provided for you as soon as possible. Otherwise follow-up with your primary care provider on Thursday. Return to the emergency department if you develop shortness of breath, chest pain, high fevers refractory to treatment, intractable nausea or vomiting, weakness or lethargy. Scripts Hydrocodone Bit/Acetaminophen (HYDROCODONE-APAP 5-325 ) 1 Each Tablet 1 TAB PO PRN Q6HRS PRN for PAIN for 2 Days, #8 TAB 0 Refills Prov: SKYE FRAZIER APRN 11/03/21 Clindamycin Hcl (CLINDAMYCIN HCL) 150 Mg Capsule 450 MG PO TID for infection for 10 Days, #90 CAP 0 Refills Prov: SKYE FRAZIER APRN 11/03/21 SKYE FRAZIER APRN Nov 03, 2021 14:06 ANNA JOSE DO Nov 04, 2021 11:25
--- NOTE | 2021-11-03 14:10 | RAD ---
EXAM: XR CHEST 1V 11/03/2021 2:04 PM CLINICAL INDICATION: Cough, shortness of air, tooth infection COMPARISON: Chest radiograph 01/07/2019 TECHNIQUE: AP view of the chest FINDINGS: The heart is normal in size. Lungs are well-expanded and clear. No pleural effusion or pne umothorax. No acute osseous abnormality. IMPRESSION: Normal chest radiograph. Electronically signed by: Kalyn Mckenzie MD (11/03/2021 2:07 PM) [id number]
[2021-11-03 14:55] LABS: INFLUENZA A PATIENT NEGATIVE (NEGATIVE); INFLUENZA B PATIENT NEGATIVE (NEGATIVE)
[2021-11-03] MEDS ORDERED: HYDR-2155 PO (14:58)
== END 2021-11-03 15:06 | disposition home or self-care (01) ==
LOC: ER 13:49
DX: K04.7 Periapical abscess without sinus (principal); K02.9 Dental caries, unspecified; R05.9 Cough, unspecified; R06.02 Shortness of breath; I11.0 Hypertensive heart disease with heart failure; I50.9 Heart failure, unspecified; J44.9 Chronic obstructive pulmonary disease, unspecified; Z20.822 Contact with and (suspected) exposure to COVID-19; Z88.0 Allergy status to penicillin; Z88.8 Allergy status to other drugs, medicaments and biological substances
CPT/HCPCS: 71045; 87428; 99284

== ENCOUNTER 2022-03-03 11:06 | Emergency (ER) | payer MEDICARE ==
[~2022-03-03] VITALS: Ht 162.6 cm; Wt 60.7 kg
[~2022-03-03 11:06] MED LIST changes: +CLIN150C16 PO; +HYDR-2155 PO
[2022-03-03 11:23] VITALS: BP 143/79
[2022-03-03] MEDS ORDERED: HYDR-2155 PO (11:41)
[2022-03-03] MEDS ORDERED: CLIN150C16 PO (11:41)
--- NOTE | 2022-03-03 11:42 | PHYS DOC ---
Past History Past Medical History: CHF, COPD, Hypertension Additional Past Medical Histor: RLS, Past Surgical History: Additional Past Surgical Histo: LEFT knee surgery Smoking: Non-smoker Alcohol Use: None Drug Use: None General Adult EDM: Chief Complaint: DENTAL PROBLEM HPI: HPI: Patient is a 56-year-old female who presents to the emergency department for right upper dental pain and facial swelling that started yesterday. Patient denies any fevers, vomiting or difficulty swallowing or breathing. She reports that she has seen a dentist in the past but is unable to afford getting her tooth pulled. Review of Systems: Review of Systems: Constitutional: See HPI HENT: See HPI Respiratory: See HPI GI: See HPI Allergies: Allergies: Allergies Coded Allergies Type Severity Reaction Last Updated Verified Penicillins Allergy Intermediate Rash 03/03/22 Yes vitamin E Allergy Intermediate rash 03/03/22 Yes Physical Exam: PE: Constitutional: Well developed, well nourished, no acute distress, non-toxic appearance. [] HENT: Normocephalic, atraumatic, bilateral external ears normal, no tonsillar enlargement or erythema, uvula midline, no trismus or phonation changes, several areas of dental decay, right upper broken tooth with dental decay with swelling to the gums with mild redness, oropharynx moist, no oral exudates, nose normal. [] Eyes: PERRL, EOMI, conjunctiva normal, no discharge. [] Neck: Normal range of motion, no tenderness, no palpable lymphadenopathy, supple, no stridor. [] Cardiovascular: Normal peripheral perfusion Lungs & Thorax: Normal work of breathing, no tachypnea Abdomen: Soft and flat Skin: Warm, dry, no erythema, no rash. [] Back: No tenderness, normal range of motion Extremities: No tenderness, no cyanosis, no clubbing, ROM intact, no edema. [] Neurologic: Alert and oriented X 3, normal motor function, normal sensory fu nction, no focal deficits noted. [] Psychologic: Affect normal, judgement normal, mood normal. [] Current Patient Data: Vital Signs: Vital Signs Date Time Temp Pulse Resp B/P (MAP) Pulse Ox O2 Delivery O2 Flow Rate FiO2 03/03/22 11:23 98.2 96 20 143/79 (100) 98 Room Air EKG: EKG: [] Radiology/Procedures: Radiology/Procedures: [] Heart Score: C/O Chest Pain: N/A Risk Factors: Risk Factors: DM, Current or recent (<one month) smoker, HTN, HLP, family history of CAD, obesity. Risk Scores: Score 0 - 3: 2.5% MACE over next 6 weeks - Discharge Home Score 4 - 6: 20.3% MACE over next 6 weeks - Admit for Clinical Observation Score 7 - 10: 72.7% MACE over next 6 weeks - Early Invasive Strategies Course & Med Decision Making: Course & Med Decision Making Pertinent Labs and Imaging studies reviewed. (See chart for details) [] Patient resents to the emergency department for dental pain and right facial swelling. Patient appears to have several areas of dental decay and broken teeth. She does have mild erythema and swelling noted to her right upper molar. Patient will be treated with an antibiotic and pain medication. She was given community resources in dental clinic list. I discussed with patient all findings and diagnostic testing as well as the need to follow-up with PCP for further evaluation and treatment or return to the ER if any new or worsening symptoms. Strict return precautions were also discussed at length. Patient voiced understanding and agreement with the plan. Patient is hemodynamically stable at the time of disposition. Dragon Disclaimer: [employer] Disclaimer: This electronic medical record was generated, in whole or in part, using a voice recognition dictation system. Departure Departure: Impression: Primary Impression: Dental infection Disposition: HOME / SELF CARE / HOMELESS Condition: GOOD Referrals: ANDERS BARNES MD (PCP) Patient Instructions: Dental Abscess, Dental Caries Additional Instructions: You are seen in the emergency department today for dental pain and infection. You are being treated with an antibiotic. Please start and finish the antibiotic completely. You are also being discharged home with pain medication. This medication is hydrocodone and Tylenol combination tablet. This medication may cause sedation so do not take when you need to be alert, driving a vehicle or with alcohol. Follow-up with one of the community resource dental clinics provided for you as soon as possible. Return to the emergency department if you develop worsening of your pain or swelling, inability to maintain your secretions, shortness of breath, high fevers refractory to treatment, intractable nausea or vomiting. Scripts Hydrocodone Bit/Acetaminophen (HYDROCODONE-APAP 5-325 ) 1 Each Tablet 1 TAB PO PRN Q6HRS PRN for PAIN for 2 Days, #8 TAB 0 Refills Prov: SKYE FRAZIER APRN 03/03/22 Clindamycin Hcl (CLINDAMYCIN HCL) 150 Mg Capsule 450 MG PO TID for dental infection for 10 Days, #90 CAP 0 Refills Prov: SKYE FRAZIER APRN 03/03/22 SKYE FRAZIER APRN March 03, 2022 11:42
[2022-03-03] MEDS ORDERED: CLINDAMYCIN HCL 150 MG CAPSULE PO ONE (11:45)
[2022-03-03] MEDS ORDERED: HYDROcodone/APAP 5/325MG 1 TAB TABLET PO ONE (11:45)
== END 2022-03-03 12:45 | disposition home or self-care (01) ==
LOC: ER 11:06
DX: K04.7 Periapical abscess without sinus (principal); I11.0 Hypertensive heart disease with heart failure; I50.9 Heart failure, unspecified; J44.9 Chronic obstructive pulmonary disease, unspecified; Z98.890 Other specified postprocedural states; Z88.0 Allergy status to penicillin; Z88.8 Allergy status to other drugs, medicaments and biological substances
CPT/HCPCS: 99283